=== PATIENT | male | born 1980 | race Caucasian/White ===

== ENCOUNTER 2017-11-23 18:49 | Emergency (ER) | payer OTHER ==
[~2017-11-23] VITALS: Ht 175.3 cm; Wt 117.2 kg
[2017-11-23 21:27] LABS: BASOPHIL (%) 0.9 % (0-1); BASOPHIL COUNT 0.1 K/uL (0-0.1); EOSINOPHIL (%) 3.1 % (0-5); EOSINOPHIL COUNT 0.4 K/uL (0-0.3); HEMATOCRIT 45.6 % (38.0-50.0); HEMOGLOBIN 15.2 G/DL (12.5-16.6); IMMATURE GRANULOCYTE (%) 0.7 % (0.0-0.7); LYMPHOCYTE (%) 22.5 % (15-42); MCH 27.4 PG (29.0-34.0); MCHC 33.3 G/DL (30.0-36.0); MCV 82.2 FL (86-99); MONOCYTE (%) 7.1 % (3-12); NEUTROPHIL (%) 65.7 % (45-76); NEUTROPHIL COUNT 8.8 K/uL (1.8-6.4); PLATELET COUNT 303 K/uL (156-360); RBC DIS.WIDTH-CV 13.9 % (11.8-14.6); RBC DIS.WIDTH-SD 41.1 % (39-53); RED BLOOD COUNT 5.55 M/uL (4.00-5.50); WHITE BLOOD COUNT 13.4 K/uL (4.1-10.2)
[2017-11-23 21:38] LABS: ALBUMIN 4.4 g/dL (3.2-4.8); CHLORIDE 104 mEq/L (99-109); SODIUM 137 mEq/L (136-147)
[2017-11-23 21:41] LABS: GLUCOSE 110 mg/dL (70-99); TOTAL PROTEIN 8.2 g/dL (6.4-8.3)
[2017-11-23 21:43] LABS: TOTAL BILIRUBIN 0.8 mg/dL (0.0-1.0)
[2017-11-23 21:44] LABS: ALKALINE PHOSPHATASE 99 IU/L (3-129); GFR ESTIMATE (CALCULATED) > 59 mL/min/ (58.99-99999)
[2017-11-23 21:45] LABS: UREA NITROGEN (BUN) 15 mg/dL (9-23)
[2017-11-23 21:46] LABS: AST (GOT) 18 IU/L (2-34)
[2017-11-23 21:47] LABS: ALT (GPT) 29 IU/L (3-49)
[2017-11-23 22:48] LABS: APPEARANCE CLEAR ((CLEAR)); BILIRUBIN NEGATIVE; BLOOD NEGATIVE; COLOR YELLOW ((YELLOW)); GLUCOSE (STRIP) NEGATIVE; KETONES NEGATIVE; LEUKOCYTES NEGATIVE; NITRITE NEGATIVE; PROTEIN (STRIP) NEGATIVE; SPECIFIC GRAVITY 1.013 (1.000-1.030); UCUL ADDED? NO; UROBILINOGEN 0.2 MG/DL (0.2-1.0)
[2017-11-24] MEDS ORDERED: AUGMENTIN875 MG PO (02:55)
[2017-11-24] MEDS ORDERED: KEFLEX500 MG PO (03:11)
[2017-11-24 03:23] VITALS: BP 137/75
== END 2017-11-24 03:26 | disposition home or self-care (01) ==
LOC: EME 18:49
PROVIDERS: Emergency Medicine
DX: M71.161 Other infective bursitis, right knee (principal); Z88.0 Allergy status to penicillin
CPT/HCPCS: 73701; 80053; 81003; 83605; 85025; 87040; 99281; 99284; J0696